=== PATIENT | male | born 1980 | race Asian ===

== ENCOUNTER 2017-09-29 18:13 | Emergency (ER) | payer SELFPAY ==
[~2017-09-29] VITALS: Ht 180.3 cm; Wt 77.7 kg
[2017-09-29 18:33] VITALS: Ht 180.3 cm; Wt 77.7 kg
[2017-09-29 21:27] VITALS: BP 121/89
== END 2017-09-29 21:32 | disposition home or self-care (01) ==
LOC: ED 18:13
DX: S16.1XXA Strain of muscle, fascia and tendon at neck level, initial encounter (principal); S39.012A Strain of muscle, fascia and tendon of lower back, initial encounter; V49.9XXA Car occupant (driver) (passenger) injured in unspecified traffic accident, initial encounter; Y93.89 Activity, other specified; Y92.89 Other specified places as the place of occurrence of the external cause; Y99.8 Other external cause status
CPT/HCPCS: J1885